=== PATIENT | male | born 1990 | race Caucasian/White ===

== ENCOUNTER 2024-08-27 01:52 | Emergency (ER) | payer BC, SELFPAY ==
[2024-08-27 01:55] VITALS: BP 108/55; PULSE 81; RESP 20; TEMP 36.8; O2SAT 100
[2024-08-27] MEDS: FLUORESCEIN SOD 1 MG/STRIP (05:15)
--- NOTE | 2024-08-27 05:35 | ED_ITS ---
HPI - Eye Problem General Chief complaint: Eye Problems Stated complaint: eye injury Time Seen by Provider: 08/27/24 04:19 History of Present Illness HPI Narrative: 44-year-old otherwise healthy male presenting for suspected corneal abrasion. He states he was walking outside when a tree ran scratches left eye. No other trauma or injury, no blurry vision. Went home and tried to sleep felt a foreign body sensation is eye. No contact lens use or previous history of ocular injury or trauma. No symptoms such as headache, fever, chills, nausea, vomiting, neck stiffness. Related Data Allergies Allergy/AdvReac Type Severity Reaction Status Date / Time No Known Allergies Allergy Verified 08/27/24 01:58 Review of Systems Review of Systems: As reviewed above in HPI Exam Narrative: GENERAL: [Well-appearing, well-nourished, and in no acute distress.] HEAD: [Normocephalic, atraumatic.] EYES: [PERRLA and EOMI.] Fluorescein dye stain shows a corneal abrasion on the left side of the visual axis in the left eye, no foreign body, no perforation or Celia sign. ENT: Nares clear, no rhinorrhea or epistaxis. Mucous membranes moist. NECK: Supple. CHEST: [Clear to auscultation. No respiratory distress.] HEART: [Regular rate and rhythm]. No murmur heard. [Normal peripheral pulses.] ABDOMEN: [Soft, nondistended], [nontender], [No rigidity or guarding] EXTREMITIES: Normal range of motion. [No edema.] SKIN: Warm, dry, no rash. NEURO: [No focal deficits]. Alert and oriented [x3.] PSYCH: [Normal mood and affect.] Course Vital Signs Vital signs: Vital Signs Temperature 36.8 C 08/27/24 01:55 Pulse Rate 81 08/27/24 01:55 Respiratory Rate 20 08/27/24 01:55 Blood Pressure 108/55 L 08/27/24 01:55 Pulse Oximetry 100 08/27/24 01:55 Oxygen Delivery Room Air 08/27/24 01:55 Temperature 36.8 C 08/27/24 01:55 Pulse Rate 81 08/27/24 01:55 Respiratory Rate 20 08/27/24 01:55 Blood Pressure 108/55 L 08/27/24 01:55 Pulse Oximetry 100 08/27/24 01:55 Oxygen Delivery Room Air 08/27/24 01:55 MDM - Eye Problem MDM Narrative Medical decision making narrative: 44-year-old male presenting with left eye pain from a stick/twig scratching his eye outside. Not any acute distress no visual deficits. No ophthalmology issues when the past, no contact lens use. Tetanus is up today. Examination reveals: Fluorescein dye stain shows a corneal abrasion on the left side of the visual axis in the left eye, no foreign body, no perforation or Celia sign. No signs of purulence or bleeding. Pupils equal reactive to light. Normal vital signs. Patient had analgesia with tetracaine and given ofloxacin drops and prescription for ofloxacin and Toradol drops and encouraged to follow-up with ophthalmology at [facility] ophthalmology care. Patient's questions were answered he was discharged home. Medical Records Attestation: I reviewed the patient's medical records. Discharge Plan Discharge Clinical Impression: Corneal abrasion Patient Disposition: Home Condition: Stable Instructions: Antibiotic Form, Corneal Abrasion (DC) Additional Instructions: Take the provided antibiotic eyedrops as directed as well as the topical NSAIDs for pain control. Follow-up with Ophthalmology at [facility] ophthalmology group in the next several days. Return with any new or worsening concerns or vision issues. Patient Language: Kazakh Prescriptions: New ofloxacin 0.3 % drops See Rx Instructions .ROUTE .COMPLEX Qty: 10 0RF Rx Instructions: put 1-2 drps into affected eye(s) every 2-4 h x 2 days, then 1-2 drps 4 times/day days 3-7 ketorolac 0.4 % drops 1 drp LEFT EYE Q6H PRN (Reason: pain) 4 Days Qty: 5 0RF Follow-up/Referrals: [facility]mology [Other] (Corneal abrasion) UNKNOWN,DOCTOR [Primary Care Provider] - Time of Disposition: 05:19
[2024-08-27] MEDS: OFLOXACIN 0.3% OPHTH SOLN 5 ML BTL 1 DROP EACH EYE (05:47)
== END 2024-08-27 05:59 | disposition home or self-care (01) ==
PROVIDERS: Emergency Provider Student in an Organized Health Care Education/Training Program
DX: S05.02XA Injury of conjunctiva and corneal abrasion without foreign body, left eye, initial encounter (principal); W22.8XXA Striking against or struck by other objects, initial encounter
CPT/HCPCS: 99283; A9270